=== PATIENT | female | born 1965 | race Caucasian/White ===

== ENCOUNTER 2018-02-05 13:13 | Emergency (ER) | payer BC ==
[~2018-02-05] VITALS: Ht 157.5 cm; Wt 73.0 kg
[2018-02-05 14:08] VITALS: BP 134/76
--- NOTE | 2018-02-05 14:10 | NUR ---
For discharge. [facility] given home in stable condition
== END 2018-02-05 15:02 | disposition home or self-care (01) ==
LOC: ER 13:15
DX: R07.89 Other chest pain (principal); F43.9 Reaction to severe stress, unspecified
CPT/HCPCS: 93005; 99283; A4606; Z7610